=== PATIENT | male | born 1980 | race Caucasian/White ===

== ENCOUNTER → 2021-12-12 | Emergency (ER) ==
[~2021-12-12] VITALS: Ht 172.7 cm; Wt 72.7 kg
[~2021-12-12] MED LIST: DUO-KAPS1 CAP PO; FOLIC ACID 11 MG/TA1 PO; MAG-OX 400400 MG/TAB PO; THIAMINE 1100 MG/TAB PO; ZYPREXA 5MG5 MG PO
[2021-12-25] VITALS (28 sets, daily range): O2SAT 95–100
== END ==
LOC: EDBD 03:06 → COL.ER 03:06
DX: Z72.89 Other problems related to lifestyle (principal)

== ENCOUNTER 2021-12-18 17:45 | Emergency (ER) | payer OTHER ==
[~2021-12-18] VITALS: Ht 167.6 cm; Wt 77.3 kg
[~2021-12-18 17:45] MED LIST changes: -MAG-OX 400400 MG/TAB PO
[2021-12-18 18:00] VITALS: TEMP 97.3
[2021-12-18 23:05] VITALS: BP 141/78; PULSE 126
[2021-12-23] VITALS (132 sets, daily range): O2SAT 99–100
[2021-12-24] VITALS (159 sets, daily range): O2SAT 97–98
== END 2021-12-18 23:43 | disposition home or self-care (01) ==
LOC: COL.ER 17:45 → EDBD 17:46 → COL.ER 23:43
DX: F15.929 Other stimulant use, unspecified with intoxication, unspecified (principal)

== ENCOUNTER 2021-12-19 15:14 | Emergency (ER) | payer OTHER ==
[~2021-12-19] VITALS: Ht 175.3 cm; Wt 68.2 kg
[2021-12-19 15:16] VITALS: BP 136/87; TEMP 97.8
[2021-12-19 16:40] VITALS: PULSE 130
[2021-12-24] VITALS (306 sets, daily range): O2SAT 96–99
[2021-12-26] VITALS (156 sets, daily range): O2SAT 87–99
== END 2021-12-19 16:40 | disposition home or self-care (01) ==
LOC: COL.ER 15:14
DX: M25.562 Pain in left knee (principal); W13.8XXA Fall from, out of or through other building or structure, initial encounter
CPT/HCPCS: L1846

== ENCOUNTER 2021-12-21 11:36 | Inpatient (IN) | payer OTHER ==
[2021-12-21] VITALS (458 sets, daily range): BP systolic 122; BP diastolic 84; PULSE 100; TEMP 98; O2SAT 89–100
[~2021-12-21] VITALS: Ht 172.7 cm; Wt 71.3 kg
[2021-12-21 12:05] LABS: COLLECTION METHOD CATHETER
[2021-12-21 12:11] LABS: HEMOGLOBIN 13.7 g/dl (13.5-18.0); MEAN CELL VOLUME 99 fl (80.0-100.0); MEAN CORPUSCULAR HEMOGLOBIN 34 pg (27-31); MEAN CORPUSCULAR HGB CONC 34 g/dl (33.0-37.0); MEAN PLATELET VOLUME 10.9 fl (7.4-10.4); PLATELET COUNT 203 K/mm3 (130-400); RED BLOOD COUNT 4.05 M/mm3 (4.20-5.60); REDCELL DISTRIBUTION WIDTH-CV 13.4 % (11.5-14.5)
[2021-12-21 12:16] LABS: MUCOUS Present (NOT PRESENT); PH 5 (5-8); SQUAMOUS EPITHELIAL None Seen /hpf (0-10); URINE APPEARANCE Cloudy (CLEAR/HAZY); URINE BACTERIA None Seen /hpf (NONE SEEN); URINE BILIRUBIN Negative (NEGATIVE); URINE BLOOD 3+ (NEGATIVE); URINE COLOR Amber (YELLOW); URINE GLUCOSE Negative (NEGATIVE); URINE KETONE 1+ (NEGATIVE); URINE LEUKOCYTE ESTERASE Negative (NEGATIVE); URINE NITRATE Negative (NEGATIVE); URINE PROTEIN(semi-quant) 1+ (NEGATIVE); URINE RBC 0-2 /hpf (0-2)
[2021-12-21 12:20] LABS: ALANINE AMINOTRANSFERASE 124 U/L (0-55); ALBUMIN 3.2 gm/dL (3.5-5.0); ALKALINE PHOSPHATASE 95 U/L (40-150); AST,SGOT 330 U/L (5-34); BILIRUBIN,TOTAL 2.2 mg/dL (0.2-1.2); BLOOD UREA NITROGEN 78 mg/dL (9-21); CALCIUM 6.9 mg/dL (8.4-10.2); CREATININE, serum 4.46 mg/dL (0.72-1.25); GLUCOSE 84 mg/dL (70-99); MAGNESIUM 3.7 mg/dL (1.6-2.6); TOTAL PROTEIN 6.2 gm/dL (6.2-8.1)
[2021-12-21 12:21] LABS: ALCOHOL(ethanol),MEDICAL < 10 mg/dL (0-10)
[2021-12-21 12:23] LABS: CARBON DIOXIDE < 5 mmol/L (22-29)
[2021-12-21 12:29] LABS: CHLORIDE 91 mmol/L (98-107); SODIUM 134 mmol/L (136-145)
[2021-12-21 12:31] LABS: POTASSIUM 5.9 mmol/L (3.5-4.5)
[2021-12-21 12:39] LABS: BAND 12 % (0-10); LYMPHOCYTE 6 % (20.0-51.0); NEUTROPHILS 78 % (42.0-75.2); PLATELET ESTIMATE NORMAL (NORMAL)
[2021-12-21 12:42] LABS: TRICYCLIC ANTIDEPRESS URINE NEGATIVE
[2021-12-21 12:44] LABS: ARTERIAL BLOOD GAS pH 7.07 (7.35-7.45)
[2021-12-21 12:45] LABS: ARTERIAL BLD GAS O2 SATURATION 98.2 % (92-100); ARTERIAL BLOOD GAS BASE EXCESS -25.3 (-2-2); ARTERIAL BLOOD GAS HCO3 2.6 meq/L (22-26); ARTERIAL BLOOD GAS PCO2 9.1 mmHg (35-45); ARTERIAL BLOOD GAS PO2 141.4 mmHg (80-100)
[2021-12-21 13:46] LABS: PROTHROMBIN TIME 11.6 SECONDS (9.7-12.8)
--- NOTE | 2021-12-21 16:54 | NUR ---
RAYMOND JONES, COMPLETED MED REC PRIOR TO PT COMING TO ICU. THIS RN UNABLE TO CONFIRM OR RECONCILE MEDICATIONS D/T PT'S MENTAL STATUS. PT'S DPOA DOES NOT KNOW PT'S MEDICATIONS.
--- NOTE | 2021-12-21 17:11 | NUR ---
1345 PT TRANSFERED TO BED 7 FROM ICU VIA ED BED. 18G IVS IN PLACE TO BOTH R AC AND L AC UPON ADMISSION. HARRINGTON CATHETER IN PLACE. NS INFUSING VIA GRAVITY TUBING. PT IS UNRESPONSIVE AND RESTLESS. SCATTERED BRUISING AND ABRASIONS NOTED TO ENTIRE BODY. BRUISING IS WORSE ON L LEG AND L ARM. LARGE OPEN BLISTERS NOTED TO BALLS OF BOTH FEET, SKIN AVULSION NOTED TO L SMALL TOE. 1400 ANESTHESIA IN TO DO INTUBATION. 1405 SISTER WHO IS DPOA CALLED FOR CONSENT. 1407 DR MOONEY IN ROOM. 1411 REVIEW OF PT, TIME OUT DONE. O2 GIVEN TO PT. 1412 PROPOFOL AND ROCURONIUM GIVEN BY MICROFILM MACHINE OPERATOR. 1414 PT INTUBATED W/ SIZE 8 ETT, 26 AT THE TEETH. 1417 MECHANICAL VENTILATION INITIATED. 1418 DR CHAIDEZ NOTIFIED OF CONSULT. 1424 CENTRAL LINE TO R SUBCLAVIAN PLACED BY DR. MOONEY. 1431 OG PLACED. ALL LINES CONFIRMED BY XRAY.
[2021-12-21 17:46] LABS: ARTERIAL BLD GAS O2 SATURATION 98.5 % (92-100); ARTERIAL BLD GAS TCO2 CT 7.7; ARTERIAL BLOOD GAS BASE EXCESS -21.1 (-2-2)
[2021-12-21 17:48] LABS: ARTERIAL BLOOD GAS PCO2 23.1 mmHg (35-45); ARTERIAL BLOOD GAS PO2 139.7 mmHg (80-100)
[2021-12-21 18:00] LABS: ACETAMINOPHEN < 1.0 ug/mL (10-30); SALICYLATE < 5.0 mg/dL (15.0-30.0)
[2021-12-21 18:16] LABS: CREATININE, serum 4.25 mg/dL (0.72-1.25); POTASSIUM 5.3 mmol/L (3.5-4.5)
[2021-12-21 18:24] LABS: CALCIUM 5.9 mg/dL (8.4-10.2)
--- NOTE | 2021-12-21 19:12 | NUR ---
BEDSIDE REPORT GIVEN TO NASEEM JONES.
[2021-12-21 21:50] LABS: CALCIUM 6.1 mg/dL (8.4-10.2); CREATININE, serum 4.19 mg/dL (0.72-1.25); MAGNESIUM 2.6 mg/dL (1.6-2.6); POTASSIUM 5.1 mmol/L (3.5-4.5)
[2021-12-21 23:25] LABS: ARTERIAL BLD GAS O2 SATURATION 88.5 % (92-100); ARTERIAL BLOOD GAS BASE EXCESS -17.7 (-2-2); ARTERIAL BLOOD GAS HCO3 7.5 meq/L (22-26); ARTERIAL BLOOD GAS pH 7.24 (7.35-7.45)
[2021-12-21 23:41] LABS: ARTERIAL BLOOD GAS PCO2 17.9 mmHg (35-45)
[2021-12-22] VITALS (1317 sets, daily range): BP systolic 106–129; BP diastolic 55–88; PULSE 85–105; TEMP 37.1; O2SAT 98–100
--- NOTE | 2021-12-22 02:28 | NUR ---
[facility] CONTACTED AT THIS TIME WITH CRITICAL VBG RESULT, CO2=18.4 DR DIMAS ORDERS AT THIS TIME: NO VENT CHANGES DC AM ABG AND KEEP 5AM VBG, VBG Q8 AFTER THAT. READ BACK AND VERIFIED. FURTHER CRITICAL VALUES DO NOT NEED TO BE CALLED IF IMPROVING.
--- NOTE | 2021-12-22 05:19 | NUR ---
41 yo male admitted for further care and management of altered mental status, rhabdomyolysis, acute renal failure, and additional concerns for sepsis of unclear etiology. ht 172.7 cm wt 68.2 kg SCr 4.19 with estimated CrCl ~20 ml/min half life 35.7 hours Plan: Patient may not follow population based kinetics secondary to acute renal failure. Patient received an initial pulse dose of vancomycin 1000 mg (14.7 mg/kg); will follow with a maintenance regimen of vancomycin 1000 mg q36h to target a goal trough of 15-20 mcg/ml. Will follow patient's renal function (SCr slowly improving, with increasing urine output), micro data, and vancomycin levels as needed to assess for any ncessary changes to regimen. Thank you for this dosing consult.
[2021-12-22 05:54] LABS: MEAN CORPUSCULAR HGB CONC 36 g/dl (33.0-37.0); MEAN PLATELET VOLUME 10.7 fl (7.4-10.4); PLATELET COUNT 105 K/mm3 (130-400); RED BLOOD COUNT 3.19 M/mm3 (4.20-5.60); REDCELL DISTRIBUTION WIDTH-CV 13.6 % (11.5-14.5)
[2021-12-22 05:59] LABS: HEMATOCRIT 29.9 % (42.0-52.0); HEMOGLOBIN 10.8 g/dl (13.5-18.0); MEAN CORPUSCULAR HEMOGLOBIN 34 pg (27-31)
[2021-12-22 06:00] LABS: MEAN CELL VOLUME 94 fl (80.0-100.0); PROTHROMBIN TIME 11.9 SECONDS (9.7-12.8)
[2021-12-22 06:28] LABS: ALBUMIN 2.2 gm/dL (3.5-5.0); BILIRUBIN,TOTAL 1.2 mg/dL (0.2-1.2); CREATININE, serum 4.84 mg/dL (0.72-1.25); MAGNESIUM 2.4 mg/dL (1.6-2.6); PHOSPHOROUS 5.9 mg/dL (2.3-4.7); TOTAL PROTEIN 4.7 gm/dL (6.2-8.1)
[2021-12-22 06:30] LABS: CALCIUM 5.8 mg/dL (8.4-10.2)
[2021-12-22 06:31] LABS: BAND 18 % (0-10); LYMPHOCYTE 4 % (20.0-51.0); METAMYELOCYTE 1 % (0-0); MYELOCYTE 1 % (0-0); NEUTROPHILS 73 % (42.0-75.2); PLATELET ESTIMATE DECREASED (NORMAL)
--- NOTE | 2021-12-22 09:06 | NUR ---
RECEIVED REPORT FROM NASEEM JONES. ALL LINES AND TUBE PLACEMENTS CHECKED AND CONFIRMED. PT IS RESTING IN BED AND WAKES TO PAINFUL STIMULI. VSS.
[2021-12-22 09:18] LABS: ARTERIAL BLD GAS O2 SATURATION 99.1 % (92-100); ARTERIAL BLOOD GAS BASE EXCESS 0.2 (-2-2); ARTERIAL BLOOD GAS HCO3 23.1 meq/L (22-26); ARTERIAL BLOOD GAS PCO2 31.4 mmHg (35-45); ARTERIAL BLOOD GAS pH 7.48 (7.35-7.45)
[2021-12-22 09:19] LABS: ARTERIAL BLOOD GAS PO2 165.4 mmHg (80-100)
--- NOTE | 2021-12-22 11:03 | NUR ---
Patient currently intubated and sedated. Unable to complete intake.
[2021-12-23] VITALS (1203 sets, daily range): BP systolic 107–135; BP diastolic 64–96; PULSE 77–102; TEMP 36.4–37.1; O2SAT 96–100
--- NOTE | 2021-12-23 00:05 | NUR ---
UPON ARRIVAL IN SAMI, PATIENT IS AWAKE EYES OPEN TRACKING STAFF, NO TREMORS, BREATHING OVER VENTILATOR,INCREASE SEDATION
[2021-12-23 04:44] LABS: HEMOGLOBIN 10.3 g/dl (13.5-18.0); MEAN CELL VOLUME 94 fl (80.0-100.0); MEAN CORPUSCULAR HEMOGLOBIN 34 pg (27-31); MEAN CORPUSCULAR HGB CONC 36 g/dl (33.0-37.0); MEAN PLATELET VOLUME 11.2 fl (7.4-10.4); PLATELET COUNT 89 K/mm3 (130-400); RED BLOOD COUNT 3.07 M/mm3 (4.20-5.60); REDCELL DISTRIBUTION WIDTH-CV 14.1 % (11.5-14.5)
[2021-12-23 04:52] LABS: HEMATOCRIT 28.7 % (42.0-52.0)
[2021-12-23 05:03] LABS: ALBUMIN 1.9 gm/dL (3.5-5.0); CALCIUM 6.6 mg/dL (8.4-10.2); CREATININE, serum 6.16 mg/dL (0.72-1.25); MAGNESIUM 2.6 mg/dL (1.6-2.6); PHOSPHOROUS 4.1 mg/dL (2.3-4.7); TOTAL PROTEIN 4.8 gm/dL (6.2-8.1)
[2021-12-23 05:10] LABS: BAND 35 % (0-10); LYMPHOCYTE 7 % (20.0-51.0); METAMYELOCYTE 1 % (0-0); NEUTROPHILS 51 % (42.0-75.2); PLATELET ESTIMATE NORMAL (NORMAL)
[2021-12-23 05:43] LABS: ARTERIAL BLD GAS TCO2 CT 21.5; ARTERIAL BLOOD GAS BASE EXCESS -1.6 (-2-2); ARTERIAL BLOOD GAS HCO3 20.6 meq/L (22-26); ARTERIAL BLOOD GAS PCO2 27.6 mmHg (35-45); ARTERIAL BLOOD GAS PO2 111.1 mmHg (80-100); ARTERIAL BLOOD GAS pH 7.49 (7.35-7.45)
[2021-12-23 05:52] LABS: PROTHROMBIN TIME 10.9 SECONDS (9.7-12.8)
--- NOTE | 2021-12-23 09:40 | NUR ---
REPORT RECEIVED FROM NASEEM MEHTA AT 0700; ALL LINES AND TUBE PLACEMENTS CHECKED. DURING MORNING ASSESSMENT PT IS NOTED TO BE LAYING IN BED WITH EYES OPEN. PT IS ABLE TO NOD HEAD TO ANSWER QUESTIONS BUT BECOMES INCREASINGLY AGITATED. PT THRASHES AROUND AND ATTEMPTS TO SIT UP, DOES NOT FOLLOW COMMANDS. SEDATION TITRATED APPROPRIATELY PER ORDER.
--- NOTE | 2021-12-23 10:38 | NUR ---
Patient still intubated and sedated. Patients sister arrive to the unit. Patient still agitated this morning.
--- NOTE | 2021-12-23 17:41 | NUR ---
PT RETURNED FROM PROCEDURE AT 1600. THIS NURSE ATTEMPTED TO DECREASE SEDATION POST PROCEDURE. PT BECAME AGITATED, PRECEDEX INCREASED PER ORDER, SEDATION VACATION NOT COMPLETED AT THIS TIME.
[2021-12-24] VITALS (936 sets, daily range): BP systolic 105–128; BP diastolic 70–84; PULSE 84–98; TEMP 98.2–100.3; O2SAT 94–100
[2021-12-24 05:15] LABS: ARTERIAL BLD GAS O2 SATURATION 97.8 % (92-100); ARTERIAL BLD GAS TCO2 CT 27.8; ARTERIAL BLOOD GAS BASE EXCESS 3.1 (-2-2); ARTERIAL BLOOD GAS HCO3 26.7 meq/L (22-26); ARTERIAL BLOOD GAS PCO2 36.7 mmHg (35-45); ARTERIAL BLOOD GAS PO2 98.9 mmHg (80-100); ARTERIAL BLOOD GAS pH 7.48 (7.35-7.45)
--- NOTE | 2021-12-24 05:17 | NUR ---
PT IS NOT TOLERATING THE SEDATION WEANING
[2021-12-24 06:16] LABS: MEAN CELL VOLUME 96 fl (80.0-100.0); MEAN CORPUSCULAR HGB CONC 35 g/dl (33.0-37.0); MEAN PLATELET VOLUME 11.4 fl (7.4-10.4); PLATELET COUNT 90 K/mm3 (130-400); RED BLOOD COUNT 2.89 M/mm3 (4.20-5.60); REDCELL DISTRIBUTION WIDTH-CV 14.5 % (11.5-14.5)
[2021-12-24 06:19] LABS: HEMATOCRIT 27.7 % (42.0-52.0); HEMOGLOBIN 9.7 g/dl (13.5-18.0); MEAN CORPUSCULAR HEMOGLOBIN 34 pg (27-31)
[2021-12-24 06:31] LABS: INR 0.9 (0.8-3.0); PROTHROMBIN TIME 10.8 SECONDS (9.7-12.8)
[2021-12-24 06:32] LABS: ALBUMIN 1.9 gm/dL (3.5-5.0); CREATININE, serum 7.14 mg/dL (0.72-1.25); MAGNESIUM 2.9 mg/dL (1.6-2.6); PHOSPHOROUS 3.9 mg/dL (2.3-4.7); POTASSIUM 3.7 mmol/L (3.5-4.5); TOTAL PROTEIN 5.5 gm/dL (6.2-8.1)
--- NOTE | 2021-12-24 07:00 | NUR ---
0700-PATIENT SEDATED AND INTUBATED; APPEARS TO BE RESTING COMFORTABLY NO SIGNS OF DISCOMFORT AT THIS TIME; PATIENT SEDATED ON FENTANYL, PROPOFOL, PRECEDEX. RIGHT SUBCLAVIAN TRIPPLE LUMEN IN PLACE, RIGHT SUBCLAVIAN HEMODIALYSIS CATH IN PLACE. HARRINGTON TO DEPENDANT DRAINAGE. RECTAL TEMP PROB IN PLACE. 20 G PIV RIGHT AC IN PLACE. ET TUBE AT 24 AT TEETH. VENT SETTING RATE 18 TV 450 FIO2 25, AND PEEP 5. SIZE 8 ET TUBE. OG TUBE IN PLACE AT 65, CURRENTLY CLAMPED.
[2021-12-24 07:04] LABS: BAND 21 % (0-10); LYMPHOCYTE 8 % (20.0-51.0); NEUTROPHILS 60 % (42.0-75.2); PLATELET ESTIMATE DECREASED (NORMAL)
--- NOTE | 2021-12-24 08:24 | NUR ---
*LATE ENTRY* SW received phone call from [employer] extrusion manager stating that they got notification that the patient was admitted and wanted to see if he was still here. She states that when the patient was discharged last time he was sent home with a court order from the barrel line operator [facility] and he is in violation of that court order because he never showed up for out patient treatment or any of his other follow ups. She states that they have been trying to get ahold of the patient consistently but have not been able to reach him. Request made for the patients information from this admit to be faxed to [place] Blue Team attnAj Gusman at F#:[phone]. Patients clinical information faxed and informed her that at this time the patient is intubated and sedated.
--- NOTE | 2021-12-24 14:50 | NUR ---
SW met with patient to complete intake. Patient states that he is staying at both his mothers house ([place] [phone]) and his sisters house. Patient states that he is independent with his ADL's and does not utilize any assistive devices to help with ambulation. Patient has no home oxygen needs. Patient reports that he is not seeing anyone for PCP care. He went to the [facility] once since his last admission. Patient reports to utilizing [facility] pharmacy for medications and states that he does have trouble affording him insulin. Patient is not and has no children. His established legal next of kin is his mother [place].
--- NOTE | 2021-12-24 17:06 | NUR ---
SEDATION VACATION NOT INDICATED AT THIS TIME DUE TO PATIENT BEING EASILY AGGITATED WHEN TALKED TO OR REPOSITIONED
--- NOTE | 2021-12-24 18:20 | NUR ---
ATTEMPTED TO NOTIFY ASIF WITH NEPHROLOGY AT 1800 AND 1820 OF URINE OUTPUT PER HER REQUEST. NO ANSWER. WILL PASS ON TO NIGHT SHFIT. OUTPUT CHARTED.
--- NOTE | 2021-12-24 20:59 | NUR ---
BEDSIDE SHIFT REPORT RECEIVED FROM NASEEM GARCIA. PT VENTED/SEDATED. VENT SETTINGS ACCORDING TO REPORT. ALL LINES RUNNING APPROPRIATELY (SEE DRIP FLOW SHEET). HARRINGTON IN PLACE AND DRAINING. RESTRAINTS IN PLACE AND ORDER UPDATED. VSS, NO ACUTE CHANGES
--- NOTE | 2021-12-24 23:38 | NUR ---
RN SAID PT TRIED TO SELF EXTUBATE TWICE SO SEDATION WAS INCREASED TO PREVENT THOSE MEASURES.
[2021-12-25] VITALS (914 sets, daily range): BP systolic 127–141; BP diastolic 76–92; PULSE 73–89; TEMP 98–99; O2SAT 85–100
[2021-12-25 01:52] LABS: HEPATITIS B SURFACE ANTIBODY <2.0 (()); HEPATITIS B SURFACE ANTIGEN Negative (Negative); HEPATITIS C VIRUS ANTIBODY Negative (Negative)
[2021-12-25 04:47] LABS: ARTERIAL BLD GAS O2 SATURATION 97.2 % (92-100); ARTERIAL BLD GAS TCO2 CT 27.2; ARTERIAL BLOOD GAS HCO3 26.1 meq/L (22-26); ARTERIAL BLOOD GAS PCO2 38.7 mmHg (35-45); ARTERIAL BLOOD GAS PO2 89.2 mmHg (80-100); ARTERIAL BLOOD GAS pH 7.45 (7.35-7.45)
[2021-12-25 04:50] LABS: HEMOGLOBIN 10.2 g/dl (13.5-18.0); MEAN CELL VOLUME 98 fl (80.0-100.0); MEAN CORPUSCULAR HEMOGLOBIN 33 pg (27-31); MEAN CORPUSCULAR HGB CONC 34 g/dl (33.0-37.0); MEAN PLATELET VOLUME 10.5 fl (7.4-10.4); PLATELET COUNT 104 K/mm3 (130-400); RED BLOOD COUNT 3.06 M/mm3 (4.20-5.60); REDCELL DISTRIBUTION WIDTH-CV 14.9 % (11.5-14.5)
[2021-12-25 05:02] LABS: HEMATOCRIT 30.1 % (42.0-52.0)
[2021-12-25 05:10] LABS: ALBUMIN 1.8 gm/dL (3.5-5.0); BILIRUBIN,TOTAL 0.8 mg/dL (0.2-1.2); CALCIUM 8.5 mg/dL (8.4-10.2); CREATININE, serum 7.67 mg/dL (0.72-1.25); POTASSIUM 3.6 mmol/L (3.5-4.5); TOTAL PROTEIN 5.4 gm/dL (6.2-8.1)
--- NOTE | 2021-12-25 05:19 | NUR ---
PT IS STILL IN THE WEANING PROCESS FROM SEDATION
--- NOTE | 2021-12-25 05:21 | NUR ---
PT WEENING DOWN ON VERSED, CURRENTLY ON 1 ML/HR. WITH DECREASED VERSED PT BECAME VERY AGGITATED AND RESTLESS. PRECEDEX INCREASED. SEDATION VACATION NOT APPROPRIATE AT THIS TIME
[2021-12-25 06:14] LABS: BAND 16 % (0-10); EOSINOPHIL 3 % (0-4); LYMPHOCYTE 5 % (20.0-51.0); NEUTROPHILS 65 % (42.0-75.2); PLATELET ESTIMATE NORMAL (NORMAL)
--- NOTE | 2021-12-25 07:00 | NUR ---
PT ON SEDATION VACATION AND VENT WEANING TRIAL. PT OPENS EYES TO VOICE. PT FOLLOWS COMMANDS. PT RESTLESS SO PRN ATIVAN GIVEN. VSS. PT COMFORTED AND REMINDED TO RELAX AND TRY TO BREATH.
--- NOTE | 2021-12-25 08:15 | NUR ---
SEDATION DECREASED PER . PT WILL BE EXTUBATED.
--- NOTE | 2021-12-25 08:48 | NUR ---
Pt extubated with no complications. OG removed. Restraints d/c'd. HD nurse bedside to start dialysis. VSS. Pt awake and following commands.
--- NOTE | 2021-12-25 09:32 | NUR ---
DEBBIE left message for Uzma at the [facility] Blue team to check on the patients housing status. Clinical updates faxed to U[facility]ma.
--- NOTE | 2021-12-25 19:35 | NUR ---
BEDSIDE SHIFT REPORT RECEIVED FROM NASEEM LUIS. PT CURRENTLY RESTING IN BED. LINES RUNNING APPROPRIATELY (SEE DRIP FLOWSHEET). HARRINGTON DRAINING TO GRAVITY. VSS, NO ACUTE CHANGES AT THIS TIME.
[2021-12-26] VITALS (561 sets, daily range): BP systolic 86–169; BP diastolic 68–91; PULSE 66–88; TEMP 98.3–98.8; O2SAT 79–99
[2021-12-26 05:00] LABS: MEAN CELL VOLUME 99 fl (80.0-100.0); MEAN CORPUSCULAR HGB CONC 33 g/dl (33.0-37.0); MEAN PLATELET VOLUME 10.8 fl (7.4-10.4); PLATELET COUNT 135 K/mm3 (130-400); RED BLOOD COUNT 2.83 M/mm3 (4.20-5.60); REDCELL DISTRIBUTION WIDTH-CV 14.6 % (11.5-14.5)
[2021-12-26 05:04] LABS: HEMATOCRIT 28.1 % (42.0-52.0); HEMOGLOBIN 9.3 g/dl (13.5-18.0); MEAN CORPUSCULAR HEMOGLOBIN 33 pg (27-31)
[2021-12-26 05:21] LABS: ALBUMIN 1.8 gm/dL (3.5-5.0); BILIRUBIN,TOTAL 0.8 mg/dL (0.2-1.2); CALCIUM 8.4 mg/dL (8.4-10.2); CREATININE, serum 5.54 mg/dL (0.72-1.25); POTASSIUM 3.4 mmol/L (3.5-4.5); TOTAL PROTEIN 5.1 gm/dL (6.2-8.1)
[2021-12-26 05:44] LABS: BAND 9 % (0-10); LYMPHOCYTE 8 % (20.0-51.0); METAMYELOCYTE 3 % (0-0); NEUTROPHILS 61 % (42.0-75.2)
[2021-12-26 05:45] LABS: PLATELET ESTIMATE NORMAL (NORMAL)
--- NOTE | 2021-12-26 15:35 | NUR ---
DEBBIE spoke with Keturah Kumar, [place] caseworker for the patient. Update provided to her on the patient's condition. Per Keturah, the patient has lost his apartment as the end of November and is currently homeless. She states that per the lease agreement, for the patient to keep the lease he had to establish outpatient treatment, which the patient did not follow up and do. Keturah verbalized that she is will to reapply for his apartment but that the patient has to reach out and make contact with her. Keturah bean states that the [facility] has an inpatient treatment that the patient can go to for his drug use, but again, the patient has to be the one to reach out to Keturah to establish that and start that process. Asked Keturah about the patient's court order for the last admission and what actions the VA is planning to take. She states that the order did not come from a [facility] stock turner and that it came from a local stock turner so she is not sure what that outcome will be. She goes on to say that the patient is on parol and his PO is out of [place]. Phone call made and message left for a that office. Keturah states that the patient has been diagnosed with paranoid schizophrenia w/auditory hallucinations ans she suspects the patient is not taking his medication as this behavior is a cycle. hospitalist provided with update on above.
--- NOTE | 2021-12-26 18:06 | NUR ---
REPORT GIVEN TO YARELIS GUSMANPAD MACHINE FEEDER TO MEDICAL FLOOR ROOM 57 VIA WHEELCHAIR. PT BELONGING FOLLOWED WITH PT.
[2021-12-27] VITALS (8 sets, daily range): BP systolic 131–159; BP diastolic 66–91; PULSE 72–82; TEMP 98–99.2
--- NOTE | 2021-12-27 04:53 | NUR ---
PT heard yelling "OUCH" from room, when RN attempted to open door, pt was lying on floor infront of door, blocking entry. RN Jillian able to squeeze thru door and help pt move out from door enough to allow MAGAZINE WORKER and this RN to enter, pt lying on right side, pandya bag attached to bed, tubing pulled tight, pt c/o pain to penis, balloon remains intact, patent. pt states he hit head on left side when he fell, no redness or edema noted, no obvious injury visualized. pt c/o generalized aching all over, but no worse than prior to fall. assisted to feet with assist of 3, ambulated to bed. VS taken, RAYMOND Whiting notified of fall, orders rec'd.
[2021-12-27 07:18] LABS: MEAN CELL VOLUME 101 fl (80.0-100.0); MEAN CORPUSCULAR HGB CONC 32 g/dl (33.0-37.0); MEAN PLATELET VOLUME 10.4 fl (7.4-10.4); PLATELET COUNT 216 K/mm3 (130-400); RED BLOOD COUNT 2.73 M/mm3 (4.20-5.60); REDCELL DISTRIBUTION WIDTH-CV 14.2 % (11.5-14.5)
[2021-12-27 07:33] LABS: HEMATOCRIT 27.5 % (42.0-52.0); HEMOGLOBIN 8.9 g/dl (13.5-18.0); MEAN CORPUSCULAR HEMOGLOBIN 33 pg (27-31)
[2021-12-27 07:51] LABS: ALBUMIN 1.9 gm/dL (3.5-5.0); BILIRUBIN,TOTAL 0.6 mg/dL (0.2-1.2); CALCIUM 8.3 mg/dL (8.4-10.2); CREATININE, serum 4.83 mg/dL (0.72-1.25); POTASSIUM 3.1 mmol/L (3.5-4.5); TOTAL PROTEIN 5.1 gm/dL (6.2-8.1)
[2021-12-27 08:06] LABS: ANISOCYTOSIS 1+; BAND 2 % (0-10); EOSINOPHIL 1 % (0-4); HYPOCHROMIA 1+; LYMPHOCYTE 11 % (20.0-51.0); MYELOCYTE 1 % (0-0); NEUTROPHILS 72 % (42.0-75.2); PLATELET ESTIMATE NORMAL (NORMAL)
--- NOTE | 2021-12-27 08:15 | NUR ---
PT DROWSY, ALERT, REPORTS PAIN "ALL OVER", ATIVAN GIVEN PER DETOX SCORE, ASSESSMENT PERFORMED, PT TOOK PILLS WITH POTASSIUM REPLACEMENT, NO OTHER NEEDS
--- NOTE | 2021-12-27 10:04 | NUR ---
X2 ATTEMPT TO CALL PSYCH CONSULT PER ORDER. NO ANSWER
--- NOTE | 2021-12-27 17:36 | NUR ---
PT DROWSY MOST OF SHIFT, AROUSABLE TO NAME, REQUESTING MULTIPLE SNACKS DURING SHIFT, NO OTHER NEEDS
--- NOTE | 2021-12-27 23:01 | NUR ---
BED ALARM IN PLACE PATIENT POST FALL FROM 12/26/21 CALL LIGHT HANK REACH. DRESSING CHANGED TO R TRIPPLE LUMEN. HARRINGTON CATHETER PATENT FLOWING ADEQAUTELY BAG BELOW BLADDER. HARRINGTON CATHETER PULLED ON LAST NIGHT FROM FALL. LLE EDEMA ENCOURAGING PATIENT TO ELEVATE WHILE IN BED. PATIENT IS BEING FOLLOWED BY PSYCH. NO S/S OF SOB OR DISTRESS ON RA. WILL CONTINUE TO MONITOR PATIENT THROUGHOUT SHIFT.
[2021-12-28 00:06] VITALS: BP 153/87; PULSE 75; TEMP 98.6
[2021-12-28 04:10] VITALS: BP 137/78; PULSE 82; TEMP 99.5
--- NOTE | 2021-12-28 05:21 | NUR ---
PATIENT WAS ABLE TO SLEEP THROUGHOUT THE NIGHT BED ALARM IN PLACE PATIENT USING CALL LIGHT FOR ASSISTANCE THROUGHOUT SHIFT. CHANGED CENTRAL LINE DRESSING TO R UPPER CHEST AREA TOLERATED WELL. WILL CONTINUE TO MONITOR PATIENT. REMOVED IV TO R AC DUE TO REDNESS AND LOOSE DRESSING.
[2021-12-28 07:12] LABS: CALCIUM 7.9 mg/dL (8.4-10.2); CREATININE, serum 3.49 mg/dL (0.72-1.25)
[2021-12-28 07:18] VITALS: BP 144/72; PULSE 81; TEMP 100.3
--- NOTE | 2021-12-28 08:30 | NUR ---
PT BECOMES SOB AFTER TAKING DRINK W/O COUGH. FRESH ICE WATER BROUGHT IN ALONG WITH MORNING PILLS. ASSESSMENT PERFORMED, PT HAS SCRATCHES AND SCABS SCATTERED OVER BODY, R FOREARM HAS SCRATCHES SUSPECTED OF INTENTIONAL SELF HARM, PT REPOSTIONED HIMESELF IN BED, BREAKFAST SET UP IN FRONT OF PT, HARRINGTON DRAINING YELLOW URINE, PT REPORTS FEELING STRONGER THAN YESTERDAY.
[2021-12-28 12:36] VITALS: BP 147/93; PULSE 73; TEMP 98.3
--- NOTE | 2021-12-28 15:09 | NUR ---
PT REPORTING POOR SLEEP DURING STAY, REPORTS FEELING RESTLESS AND ANXIOUS. ATIVAN PRN GIVEN AND MELATONIN REQUESTED FROM ROBERT ANDRADE. NO OTHER NEEDS
[2021-12-28 15:35] VITALS: BP 145/79; PULSE 67; TEMP 98.8
--- NOTE | 2021-12-28 17:29 | NUR ---
PT REQUESTING BLANKETS MULTIPLE TIMES DURING SHIFT, APPEARS ANXIOUS, ATIVAN GIVEN, PT KEEPING FOOD TRAYS AT BEDSIDE AND WILL NOT ALLOW STAFF TO REMOVE TRAYS. PT PLEASANT, DENIES DISCOMFORT AT THIS TIME, LLE EDEMETOUS, NO OTHER NEEDS
[2021-12-28 19:39] VITALS: BP 155/90; PULSE 65; TEMP 98.3
--- NOTE | 2021-12-28 21:56 | NUR ---
PATIENT STARTED ON MELATONIN THIS EVENING, STATED HASN'T SLEPT IN 3 DAYS. NO S/S OF ANXIETY NOTED AT THIS TIME. BED ALARM IN PLACE FOR SAFETY. HARRINGTON CATHETER PATENT BAG BELOW BLADDER. WILL CONTINUE TO MONITOR FOR ANY CHANGES THROUGHOUT SHIFT. WILL CONTINUE TO MONITOR BEHAVIOR FOR NAY CHANGES.
[2021-12-29 00:01] VITALS: BP 152/82; PULSE 70; TEMP 98.8
[2021-12-29 03:48] VITALS: BP 145/81; PULSE 96; TEMP 99.5
[2021-12-29 06:28] LABS: MEAN CELL VOLUME 98 fl (80.0-100.0); MEAN CORPUSCULAR HGB CONC 34 g/dl (33.0-37.0); MEAN PLATELET VOLUME 10.6 fl (7.4-10.4); RED BLOOD COUNT 2.67 M/mm3 (4.20-5.60)
[2021-12-29 06:40] LABS: HEMATOCRIT 26.1 % (42.0-52.0); HEMOGLOBIN 8.9 g/dl (13.5-18.0); MEAN CORPUSCULAR HEMOGLOBIN 33 pg (27-31); PLATELET COUNT 388 K/mm3 (130-400)
[2021-12-29 06:50] LABS: ALBUMIN 1.8 gm/dL (3.5-5.0); BILIRUBIN,TOTAL 0.5 mg/dL (0.2-1.2); CALCIUM 7.9 mg/dL (8.4-10.2); CREATININE, serum 2.66 mg/dL (0.72-1.25); MAGNESIUM 1.6 mg/dL (1.6-2.6); PHOSPHOROUS 5.1 mg/dL (2.3-4.7); POTASSIUM 3.2 mmol/L (3.5-4.5)
[2021-12-29 08:14] VITALS: BP 137/74; PULSE 76; TEMP 99.4
--- NOTE | 2021-12-29 08:47 | NUR ---
NOTIFIED MARCEL ANDRADE OF PT HAVING TROUBLE SLEEPING AT NIGHT DESPITE MELATONIN, REQUESTED OLANZAPINE PER PSYCH RECOMMENDATIONS FOR PT ANXIETY, AND REPORTED THE LLE EDEMA.
[2021-12-29 10:18] LABS: BAND 3 % (0-10); EOSINOPHIL 1 % (0-4); HYPOCHROMIA 1+; LYMPHOCYTE 11 % (20.0-51.0); METAMYELOCYTE 1 % (0-0); NEUTROPHILS 78 % (42.0-75.2); PLATELET ESTIMATE NORMAL (NORMAL)
[2021-12-29 12:16] VITALS: BP 145/80; PULSE 66; TEMP 99.4
[2021-12-29 15:39] VITALS: BP 145/80; PULSE 70; TEMP 98.4
--- NOTE | 2021-12-29 15:57 | NUR ---
Planetarium Technician contacted Keturah [place] Day Care Teacher who advised she may be able to place patient at a [place] inpatient psych facility in [place], however it would have to be voluntary. Keturah advised that if patient is not voluntary, he will need to be screened for involuntary. DEBBIE faxed referral to Keturah. DEBBIE contacted [facility] and sent referral for involuntary screening as Hospitalist advised patient does not have decision making capacity at this time. Patient not medically cleared today per Hospitalist, possibly tomorrow. DEBBIE updated the [place] [facility] and will send updates tomorrow for screen once medically cleared.
--- NOTE | 2021-12-29 19:07 | NUR ---
PT HAS FLAT AFFECT, AOX4, UNEVENFTUL SHIFT, GOOD ORAL INTAKE, CALLS FOR ASSISTANCE WITH AMBULATION, NO DVT ON VENOUS DUPLEX, NO OTHER NEEDS
[2021-12-29 19:55] VITALS: BP 143/88; PULSE 67; TEMP 98.7
--- NOTE | 2021-12-29 21:37 | NUR ---
Patient assessed around 2029. Denies pain and discomfort. TLC to right subclavian, as well as HD catheter. Dressings CDI. Denies SOB and dyspnea. LS CTA. HRR. BSAx4. 1+ edema LLE. Patient has abrasions/scabs all over. Indwelling pandya catheter patent, draining clear yellow urine via dependent drainage. Voices no questions, needs, or concerns at this time. In bed with call light within reach. Bed alarm on.
[2021-12-30] VITALS (7 sets, daily range): BP systolic 133–155; BP diastolic 77–93; PULSE 58–94; TEMP 98.4–99.1
--- NOTE | 2021-12-30 05:38 | NUR ---
Patient reported during the night that Melatonin was not helping him sleep. Called Johanne, and order recieved for Benadryl. Given per orders along with Acetaminophen as requested. Patient reported this morning that he was able to get some sleep. Blood obtained from TLC. Voices no questions, needs, or concerns at this time. In bed with call light within reach. Bed alarm on.
[2021-12-30 07:08] LABS: MEAN CORPUSCULAR HGB CONC 32 g/dl (33.0-37.0); RED BLOOD COUNT 2.74 M/mm3 (4.20-5.60); REDCELL DISTRIBUTION WIDTH-CV 13.8 % (11.5-14.5)
[2021-12-30 07:17] LABS: CALCIUM 8.2 mg/dL (8.4-10.2); CREATININE, serum 2.19 mg/dL (0.72-1.25); POTASSIUM 3.3 mmol/L (3.5-4.5)
[2021-12-30 07:29] LABS: HEMATOCRIT 28.2 % (42.0-52.0); HEMOGLOBIN 8.9 g/dl (13.5-18.0); MEAN CORPUSCULAR HEMOGLOBIN 32 pg (27-31)
[2021-12-30 07:30] LABS: MEAN CELL VOLUME 103 fl (80.0-100.0)
[2021-12-30 07:31] LABS: PLATELET COUNT 512 K/mm3 (130-400)
[2021-12-30 10:32] LABS: BAND 1 % (0-10); EOSINOPHIL 1 % (0-4); HYPOCHROMIA 1+; LYMPHOCYTE 15 % (20.0-51.0); NEUTROPHILS 76 % (42.0-75.2); PLATELET ESTIMATE INCREASED (NORMAL)
--- NOTE | 2021-12-30 15:30 | NUR ---
Orthopaedic Surgeon spoke with Hospitalist who advised patient is medically cleared for screen from [facility]. DEBBIE faxed clinical updates to the Crisis Stabilization Unit and assisted in facilitating screen with Ana, Crisis Therapist. Ana conducted screen then contacted DEBBIE to advised that patient was alert, oriented, and cooperative during screen so they will be pursuing voluntary placement at the [place], which patient is agreeable to. Ana advised that if patient is found to no longer be agreeable, they would rescreen patient. Ana advised she would also be notifying the assistant district attorney that patient violated previous court order from last hospital stay. DEBBIE spoke with [facility] [place] financial officer to provide update. Ana contacted DEBBIE and requested updated labs. DEBBIE provided. Ana stated that she has been in contact with [facility] and patient is on their list. DEBBIE updated RN, Hospitalist, and Commercial Marketing Specialist. Discharge Plan: [facility], [facility] coordinating placement
--- NOTE | 2021-12-30 17:32 | NUR ---
PT ORIENT AND ALERT X4, VSS, HARRINGTON CATHETER REMOVED, URINAL BEDSIDE PT ON POTASSIUM PROTOCOL.
--- NOTE | 2021-12-30 17:40 | NUR ---
RECEIVED A PHONE CALL FROM [facility] REQUESTING RECENT LABS AND AN UPDATED EKG. CONTACTED DR. BROWN WHO STATES WE CAN ORDER WHATEVER THE VA NEEDS FOR PLACEMENT.
--- NOTE | 2021-12-30 18:40 | NUR ---
PATIENT TOLARATED HARRINGTON REMOVAL WHILE, CURRENTLY A URINAL 45OML EMPTIED FROM THE URINAL SINCE HARRINGTON DC
[2021-12-31 04:11] VITALS: BP 135/97; PULSE 83; TEMP 99.2
[2021-12-31 07:12] VITALS: BP 142/87; PULSE 74; TEMP 98.3
[2021-12-31 07:17] LABS: CALCIUM 8.1 mg/dL (8.4-10.2); CREATININE, serum 1.77 mg/dL (0.72-1.25); MAGNESIUM 1.9 mg/dL (1.6-2.6); POTASSIUM 3.7 mmol/L (3.5-4.5)
--- NOTE | 2021-12-31 09:20 | NUR ---
PT LAYING SUPINE IN BED ON ROOM AIR. PT STATES NO PAIN OR CONCERNS AT THIS TIME. PT STATES THAT HE DOES NOT WANT TO TAKE HIS POTASSIUM RIGHT NOW. "I JUST HAD A BUNCH OF JUICE THIS MORNING AND I DONT WANT TO DRINK MORE. CAN I TAKE IT AT LUNCH TIME?" MEDICATION WILL BE HELD UNTIL LUNCH. PT STATES NO NEEDS. CALL LIGHT IS WITHIN REACH.
[2021-12-31] MEDS ORDERED: MAG-OX 400400 MG/TAB PO (10:44)
[2021-12-31 11:21] VITALS: BP 138/74; PULSE 80; TEMP 98.5
--- NOTE | 2021-12-31 11:52 | NUR ---
CALLED REPORT TO VICKY SMITH AT [facility]. ALL QUESTIONS WERE ANSWERED. NUMBER WAS LEFT FOR ANY FOLLOW UP CONCERNS.
--- NOTE | 2021-12-31 16:00 | NUR ---
Seo Strategist was contacted by Ana at [facility] who advised patient is accepted by the [facility], accepting physician is Dr. Rinaldi. DEBBIE provided report number to RN who completed report and obtained discharge fax #. DEBBIE contacted [employer] who set up secure transport. DEBBIE notified patient of discharge plan to [facility] and he is agreeable. DEBBIE faxed negative covid test and discharge orders to fax#[phone]. Discharge Plan: [facility]
== END 2021-12-31 14:14 | DRG 917 ==
LOC: COL.ER → ICU 12:53 → MEDICAL 12-26 19:04
PROVIDERS: Internal Medicine Pulmonary Disease; Nurse Practitioner; Physician Assistant; ADMIT Internal Medicine
PROC: 02HV33Z Insertion of Infusion Device into Superior Vena Cava, Percutaneous Approach (ICD-10-PCS; 2021-12-21)
PROC: 5A1945Z Respiratory Ventilation, 24-96 Consecutive Hours (ICD-10-PCS; 2021-12-22)
PROC: 0BH17EZ Insertion of Endotracheal Airway into Trachea, Via Natural or Artificial Opening (ICD-10-PCS; 2021-12-22)
PROC: 0JH63XZ Insertion of Tunneled Vascular Access Device into Chest Subcutaneous Tissue and Fascia, Percutaneous Approach (ICD-10-PCS; principal; 2021-12-23)
PROC: 05HM33Z Insertion of Infusion Device into Right Internal Jugular Vein, Percutaneous Approach (ICD-10-PCS; 2021-12-23)
PROC: B5131ZA Fluoroscopy of Right Jugular Veins using Low Osmolar Contrast, Guidance (ICD-10-PCS; 2021-12-23)
PROC: 5A1D70Z Performance of Urinary Filtration, Intermittent, Less than 6 Hours Per Day (ICD-10-PCS; 2021-12-24)
DX: T43.621A Poisoning by amphetamines, accidental (unintentional), initial encounter (principal); G92.8 Other toxic encephalopathy; N17.9 Acute kidney failure, unspecified; E87.2 Acidosis; M62.82 Rhabdomyolysis; G40.509 Epileptic seizures related to external causes, not intractable, without status epilepticus; E87.3 Alkalosis; F10.139 Alcohol abuse with withdrawal, unspecified; F10.151 Alcohol abuse with alcohol-induced psychotic disorder with hallucinations; R65.10 Systemic inflammatory response syndrome (SIRS) of non-infectious origin without acute organ dysfunction; E87.6 Hypokalemia; Z20.822 Contact with and (suspected) exposure to COVID-19; D69.6 Thrombocytopenia, unspecified; G47.00 Insomnia, unspecified; E83.42 Hypomagnesemia; F20.9 Schizophrenia, unspecified; F15.10 Other stimulant abuse, uncomplicated; E87.5 Hyperkalemia; I45.81 Long QT syndrome; Y90.0 Blood alcohol level of less than 20 mg/100 ml; F22 Delusional disorders; E83.51 Hypocalcemia; E86.0 Dehydration; Z91.14 Patient's other noncompliance with medication regimen
CPT/HCPCS: 99232-AI; 99233-AI; 99239; C1751; C9113; J0610; J1200; J1630; J1644; J1815; J1940; J2060; J2250; J2405; J2543; J2704; J3010; J3370; J3475; J3480; J7030; J7050; J7070

== ENCOUNTER 2023-05-15 08:53 | Emergency (ER) | payer OTHER ==
[~2023-05-15] VITALS: Ht 172.7 cm; Wt 54.5 kg
[~2023-05-15 08:53] MED LIST changes: +MAG-OX 400400 MG/TAB PO
[2023-05-15 08:55] VITALS: BP 110/72; PULSE 87; TEMP 96.3
== END 2023-05-15 09:09 | disposition left against medical advice (07) ==
LOC: COL.ER 08:53
DX: Z00.00 Encounter for general adult medical examination without abnormal findings (principal)

== ENCOUNTER 2023-07-20 14:02 | Emergency (ER) | payer OTHER ==
[2023-07-20 16:07] LABS: HEMATOCRIT 44.3 % (42.0-52.0); HEMOGLOBIN 15.7 g/dl (13.5-18.0); MEAN CELL VOLUME 92 fl (80.0-100.0); MEAN CORPUSCULAR HEMOGLOBIN 32 pg (27-31); MEAN CORPUSCULAR HGB CONC 35 g/dl (33.0-37.0); MEAN PLATELET VOLUME 10.3 fl (7.4-10.4); PLATELET COUNT 208 K/mm3 (130-400); RED BLOOD COUNT 4.84 M/mm3 (4.20-5.60); REDCELL DISTRIBUTION WIDTH-CV 12.7 % (11.5-14.5)
[2023-07-20 16:26] LABS: ALANINE AMINOTRANSFERASE 139 U/L (0-55); ALBUMIN 2.8 gm/dL (3.5-5.0); ALKALINE PHOSPHATASE 63 U/L (40-150); ANION GAP 15 mmol/L (7-16); AST,SGOT 436 U/L (5-34); BILIRUBIN,TOTAL 2.7 mg/dL (0.2-1.2); BLOOD UREA NITROGEN 14 mg/dL (9-21); CALCIUM 9.8 mg/dL (8.4-10.2); CARBON DIOXIDE 22 mmol/L (22-29); CHLORIDE 100 mmol/L (98-107); GLUCOSE 82 mg/dL (70-99); POTASSIUM 3.9 mmol/L (3.5-4.5); SODIUM 137 mmol/L (136-145); TOTAL PROTEIN 6.7 gm/dL (6.2-8.1)
[2023-07-20 16:27] LABS: ACETAMINOPHEN < 1.0 ug/mL (10-30); ALCOHOL(ethanol),MEDICAL < 10 mg/dL (0-10); SALICYLATE < 5.0 mg/dL (15.0-30.0)
[2023-07-20 16:34] LABS: LYMPHOCYTE 6 % (20.0-51.0); NEUTROPHILS 85 % (42.0-75.2)
[2023-07-20 16:35] LABS: PLATELET ESTIMATE NORMAL (NORMAL)
[2023-07-20 17:16] LABS: LACTIC ACID 3.3 mmol/L (0.5-2.0)
[2023-07-20 17:42] VITALS: BP 144/82; PULSE 103
[2023-07-20] MEDS ORDERED: CEPHALEXIN500 M1 PO (18:44)
== END 2023-07-20 19:05 | disposition home or self-care (01) ==
LOC: COL.ER 14:02
PROVIDERS: Family Medicine
DX: K70.10 Alcoholic hepatitis without ascites (principal)
CPT/HCPCS: J0696; J1200; J3486; J7120

== ENCOUNTER → 2023-07-23 | Emergency (ER) | payer OTHER ==
[~2023-07-23] MED LIST changes: +CEPHALEXIN500 M1 PO
[2023-07-23 13:29] LABS: BASO % 0.4 % (0.0-2.0); EOS % 0.9 % (0.0-4.0); GRAN # 2.9 K/mm3 (1.4-6.5); GRAN % 62.4 % (42.2-75.2); LYMPH # 1.3 K/mm3 (1.2-3.4); LYMPH % 26.9 % (20.0-51.0); MEAN CELL VOLUME 93 fl (80.0-100.0); MEAN CORPUSCULAR HGB CONC 35 g/dl (33.0-37.0); MEAN PLATELET VOLUME 9.3 fl (7.4-10.4); MONO # 0.4 K/mm3 (0.1-0.6); MONO % 9.2 % (1.7-9.3); PLATELET COUNT 301 K/mm3 (130-400); RED BLOOD COUNT 3.75 M/mm3 (4.20-5.60); REDCELL DISTRIBUTION WIDTH-CV 12.8 % (11.5-14.5)
[2023-07-23 13:33] LABS: HEMATOCRIT 34.8 % (42.0-52.0); MEAN CORPUSCULAR HEMOGLOBIN 33 pg (27-31)
[2023-07-23 13:34] LABS: HEMOGLOBIN 12.2 g/dl (13.5-18.0)
[2023-07-23 13:50] LABS: ALANINE AMINOTRANSFERASE 79 U/L (0-55); ALBUMIN 2.3 gm/dL (3.5-5.0); ALKALINE PHOSPHATASE 43 U/L (40-150); ANION GAP 9 mmol/L (7-16); AST,SGOT 106 U/L (5-34); BILIRUBIN,TOTAL 0.6 mg/dL (0.2-1.2); BLOOD UREA NITROGEN 8 mg/dL (9-21); CALCIUM 8.7 mg/dL (8.4-10.2); CARBON DIOXIDE 24 mmol/L (22-29); CHLORIDE 108 mmol/L (98-107); CREATININE, serum 0.66 mg/dL (0.72-1.25); GLUCOSE 179 mg/dL (70-99); LIPASE 27 U/L (8-78); POTASSIUM 3.1 mmol/L (3.5-4.5); SODIUM 141 mmol/L (136-145); TOTAL PROTEIN 5.3 gm/dL (6.2-8.1)
[2023-07-23 13:53] LABS: ACETAMINOPHEN < 1.0 ug/mL (10-30); SALICYLATE < 5.0 mg/dL (15.0-30.0)
[2023-07-23 13:54] LABS: ALCOHOL(ethanol),MEDICAL < 10 mg/dL (0-10)
[2023-07-23 13:56] LABS: TROPONIN-I < 0.010 ng/mL (0.00-0.033)
[2023-07-23 17:07] LABS: COLLECTION METHOD CLEAN CATCH
[2023-07-23 17:34] LABS: TRICYCLIC ANTIDEPRESS URINE NEGATIVE
[2023-07-23 18:49] LABS: PH 8.5 (5.0-8.5); URINE APPEARANCE Cloudy (CLEAR/HAZY); URINE COLOR Yellow (YELLOW); URINE GLUCOSE Negative (NEGATIVE); URINE KETONE Negative (NEGATIVE); URINE NITRATE Negative (NEGATIVE); URINE PROTEIN(semi-quant) Negative (NEGATIVE)
[2023-07-23 18:50] LABS: MUCOUS Present (NOT PRESENT); SQUAMOUS EPITHELIAL None Seen /hpf (0-10); URINE BLOOD Negative (NEGATIVE); URINE RBC None Seen /hpf (0-2); URINE WBC None Seen /hpf (0-2)
[2023-07-28 16:28] VITALS: BP 116/82; PULSE 112; TEMP 97.7
== END ==
LOC: COL.ER 12:38
PROVIDERS: Emergency Medicine
DX: Z00.8 Encounter for other general examination (principal); F29 Unspecified psychosis not due to a substance or known physiological condition; E87.20 Acidosis, unspecified; E87.6 Hypokalemia; R74.01 Elevation of levels of liver transaminase levels
CPT/HCPCS: J2270; J3480; J7120